=== PATIENT | male | born 1995 | race Caucasian/White ===

== ENCOUNTER 2025-01-13 13:51 | Outpatient (AMB) | payer OTHER, SELFPAY ==
--- NOTE | 2025-01-13 13:55 | A.OFFPC_ITS ---
Vital Signs 01/13/25 14:24 Height 6 ft Weight 161 lb BMI 21.8 BP 128/72 Blood Pressure Location Lt brachial Position Sitting Respiration 18 Pulse 74 Pulse Source Pulse Oximeter Temp 97.5 F Temp Source Temporal Artery Scan Pulse Oximetry (%) 97 Oxygen Delivery Method Room Air Intake Visit Reasons: QA ARCHITECT /// Requesting a PE Economic Historian Required: No Accompanied by: Self / Same As Patient Allergies cat dander (cats) Allergy (Mild, Verified 01/15/25 11:05) Itchy Eyes dog dander (dogs) Allergy (Mild, Verified 01/15/25 11:05) Itchy Eyes mold Allergy (Mild, Verified 01/15/25 11:05) Itchy Eyes Medication List - Last Reconciled 01/15/25 by ASAD Martinez No Known Home Meds Tobacco use date assessed: 01/13/25 Dental Screening Dental Screen Date: 01/13/25 Did you have a dental visit in the last 12 months?: Yes Did you have a dental problem in the last 6 months where you did not have access to dental care?: No Was dental information given to patient?: Patient has dentist HPI QA ARCHITECT /// Requesting a PE HPI Details Previous PCP: Juana Rashid Agawam Last visit: 6 years ago Last PE:About 8 years Specialist: Cardiology, Juana Sullivan OBGYN:n/a Past medical history: Afib Medications:Cardizem Family HX: Problem: The patient is a 29-year-old male presenting for an annual physical exam and follow-up on his atrial fibrillation. He has a history of both rapid and very slow heart rates and was diagnosed with atrial fibrillation after his Apple Watch detected an abnormal heart rate while he was sleeping. He notes his bradycardia is attributed to being in good physical shape, and his blood pressure remains normal even with a low heart rate. The patient has identified alcohol as a trigger for his A-fib episodes and has subsequently stopped drinking. He describes his alcohol use as a social activity and reports feeling better since quitting. He has a prescription for A-fib, which he takes as needed when his heart rate becomes very high, such as 150 beats per minute. The patient also reports a past incident of ear blockage on one side, which caused hearing loss. He is currently not experiencing ear pain or ringing in the ear. Note: He takes cardizem 30 mg as needed. He was discharged with 30 mg 4 times a day from the emergency room. But after being worked up by Cardiology this was decreased to once a day as needed. The patient reports taking salts intermittently increase his hydration. Reports that he stopped drinking alcohol and ever since he has not have anymore AFib episodes. [facility] Medical History (Updated 01/15/25 @ 12:17 by ASAD Martinez) Paroxysmal A-fib History of electrophysiologic study Social History Alcohol intake: never Patient Tobacco Use Status: Never used Tobacco e-Cigarette/Vaping Use: Never Used Current occupational status: employed Current occupation: Billboard Worker Cognitive needs: No Hearing needs: No Vision needs: No Questionnaire PHQ-9 Over the last 2 weeks, how often have you been bothered by any of the following problems? 1. Little interest or pleasure in doing things: not at all 2. Feeling down, depressed, or hopeless: not at all 3. Trouble falling or staying asleep, or sleeping too much: not at all 4. Feeling tired or having little energy: not at all 5. Poor appetite or overeating: not at all 6. Feeling bad about yourself - or that you are a failure or have let yourself or your family down: not at all 7. Trouble concentrating on things, such as reading the newspaper or watching television: not at all 8. Moving or speaking so slowly that other people could have noticed. Or the opposite - being so fidgety or restless that you have been moving around a lot more than usual: not at all 9. Thoughts that you would be better off or of hurting yourself in some way: not at all Total score: 0 Depression Screening Interpretation: Negative Depression Screening Done: Yes 32303 - PHQ-9 Billing: Yes Source: Developed by Drs. Jaret Samson, Natalie Mayfield, Nabil Tapia and colleagues, with an educational jacy from [employer]. Thrive Questionnaire Date Thrive assessed: 01/13/25 I am a: Patient What is your living situation today?: I have a steady place to live Within the past 12 months, did the food you bought not last and you didn't have the money to get more?: Never true Within the past 12 months, did you worry whether your food would run out before you got money to buy more?: Never true Do you have trouble paying for medicines?: No Do you have trouble getting transportation to medical appointments?: No Do you have trouble paying your heating and electricity bill?: No Do you have trouble taking care of your child, family member or friend?: No Do you have trouble with day-to-day activities such as bathing, preparing meals, shopping, managing finances, etc.?: No Are you currently unemployed and looking for a job?: No Are you interested in more education?: Yes Please select the resources that you would like help with: None Currently or been in a relationship where the following occur: No concerns reported THRIVE Score: 0 AUDIT C Alcohol Use Questionnaire (AUDIT-C) 1. How often do you have a drink containing alcohol?: Never Total Score: 0 CARLA-7 AMB Questionnaire CARLA-7 Date CARLA - 7 assessed: 01/13/25 Feeling nervous, anxious, or on edge: 0 = Not at all Not being able to stop or control worryin = Not at all Worrying too much about different things: 0 = Not at all Trouble relaxin = Not at all Being so restless that it is hard to sit still: 0 = Not at all Becoming easily annoyed or irritable: 0 = Not at all Feeling afraid as if something awful might happen: 0 = Not at all Total CARLA-7 score (0-4 normal; 5-9 mild; 10-14 moderate; 15-21 severe): 0 Source: Developed by Drs. Jaret Samson, Natalie Mayfield, Nabil Tapia and colleagues, with an educational jacy from [employer]. CARLA-7 Assessment Billing CARLA-7 Assessment Tool: CARLA-7 Assessment 52262 Review of Systems Const Denies headache(s) Eyes Denies loss of vision ENT Denies vertigo, Denies dizziness, Denies headache(s) and Denies sore throat Card Denies chest pain, Denies leg edema and Denies lightheadedness Resp Denies cough, Denies hemoptysis and Denies wheezing GI Denies abdominal pain, Denies melena, Denies constipation, Denies diarrhea and Denies vomiting Denies dysuria, Denies urinary frequency and Denies urinary urgency Musc Denies arthralgias, Denies joint swelling, Denies numbness and Denies tingling Neuro Denies Abnormal speech present, Denies behavioral changes, Denies vertigo, Denies dizziness, Denies headache(s), Denies loss of vision, Denies memory loss, Denies numbness and Denies tingling Psych Denies anxiety, Denies behavioral changes, Denies depression, Denies memory loss and Denies panic attacks Julian/Lymph Denies easy bleeding and Denies easy bruising Aller/Immun Denies wheezing Physical exam (Primary Care) Vital Signs: Last Vital Signs Temp 97.5 F 01/13/25 14:24 Pulse 74 01/13/25 14:24 Resp 18 01/13/25 14:24 BP 128/72 01/13/25 14:24 Pulse Ox 97 01/13/25 14:24 Oxygen Delivery Method Room Air 01/13/25 14:24 BMI result Body Mass Index 21.8 Tobacco/Smoking Status: Tobacco use Status Tobacco use date assessed 01/13/25 01/13/25 14:32 Patient Tobacco Use Status Never used Tobacco 01/13/25 14:32 e-Cigarette/Vaping Use Never Used 01/13/25 14:32 PHQ-9: PHQ-9 Score PHQ-9: Total score 0 01/13/25 14:43 Depression Screening Interpretation: Negative Thrive Assessment: Date of Thrive Assessment Date Thrive assessed 01/13/25 01/13/25 14:32 Currently or been in a relationship where the following occur: No concerns reported Const General: healthy appearing, no acute distress, alert and awake Nutritional Appearance: well nourished Orientation/consciousness: oriented to person, oriented to place and oriented to time [facility] Ears: Abnormal EAC present cerumen impaction bilateral General nose exam: Normal nasal mucous membranes and turbinates present Eyes Conjunctivae: conjunctivae normal Sclerae: sclerae normal Pupils: Equal, round and reactive pupils present Neck Neck: Yes no lymphadenopathy and Yes no JVD Thyroid: Thyroid normal Carotids: no bruits Resp Effort & Inspection: normal respiratory effort and not tachypneic Auscultation: no crackles, no rales, no rhonchi and no wheezes Cardio Rate: regular rate Rhythm: regular rhythm Heart sounds: no murmurs and normal S1 and S2 GI Palpation (GI): Soft to palpation, nontender, no hepatomegaly and no splenomegaly Auscultation: normal bowel sounds General: Yes no CVA tenderness Back/Spine/Pelvis Back: no CVA tenderness Skin General skin exam: no rashes or lesions noted and dry skin Neuro General: oriented to person, oriented to place and oriented to time Cranial nerves: Yes Equal, round and reactive pupils present Speech: No Abnormal speech present Gait exam (Neuro): Normal gait present Motor exam (neuro): no tremor noted Extrem Right upper extremity: full ROM Left upper extremity: full ROM Right lower extremity: full ROM; no edema Left lower extremity: full ROM; no edema Psych Mental Status: mental status grossly normal Speech and movement: Normal speech and movement present Affect: normal affect Attitude: cooperative Thought process: Normal thought process present Coding Level of Care Code New Pt Level 4 (75018) Diagnoses Paroxysmal A-fib I48.0 Impacted cerumen of both ears H61.23 Encounter to establish care Z76.89 Additional Codes PHQ-9 - 88003 - PHQ-9 Billing: Yes ([id number]) CARLA-7 Assessment Billing - CARLA-7 Assessment Tool: CARLA-7 Assessment 25478 ([id number]) Time Spent (min) 36 Assessment & Plan Assessment & Plan (1) Paroxysmal A-fib: Code(s): I48.0 - Paroxysmal atrial fibrillation Category: Medical Plan: The patient's atrial fibrillation appears to be paroxysmal and is strongly associated with alcohol consumption. He has been asymptomatic since ceasing alcohol intake. He will continue his current cardizem 30 mg on an as-needed basis for episodes of tachycardia, specifically if his heart rate exceeds 150 bpm while at rest. He is advised to continue abstaining from alcohol to prevent recurrence. (2) Impacted cerumen of both ears: Code(s): H61.23 - Impacted cerumen, bilateral Category: Medical Plan: The patient reports history of blockage, denies ear discomfort. He was advised not to insert objects into his ear canal. Reports that he has his own way of cleaning his ear with running warm water into the ears in the shower. He wants to try his method first and if this does not work then he will schedule an ear cleaning with the office. (3) Encounter to establish care: Code(s): Z76.89 - Persons encountering health services in other specified circumstances Category: Medical Plan: The patient is due for routine health screening. A general lab panel, including a fasting lipid panel, will be ordered. A follow-up visit is scheduled in 7 weeks to review the results. Orders: Orders 2 UA CC w/rflx Micro + Cult 01/13/25 Z00.00 - Encounter for general adult medical examination without abnormal findings TSH reflex Free T4 01/13/25 Z00. - Encounter for general adult medical examination without abnormal findings Vitamin D 25-OH Total 01/13/25 Z00.00 - Encounter for general adult medical examination without abnormal findings Lipid Panel 01/13/25 Z00.00 - Encounter for general adult medical examination without abnormal findings Complete Blood Count Auto Diff 01/13/25 Z00.00 - Encounter for general adult medical examination without abnormal findings Comprehensive [place]. Panel Fast 01/13/25 Z00.00 - Encounter for general adult medical examination without abnormal findings
[2025-01-13 14:24] VITALS: BP 128/72; PULSE 74; RESP 18; TEMP 36.4; O2SAT 97; BMI 21.8
--- OUTSIDE RECORDS SUMMARY | 2025-01-13 20:18 | XMS_ITS | Clinical Summary ---
Author Organization [facility] Address [address] [place] [address] Phone Care Team Providers Care Scudding Inspector Name Role Phone Physician, No Pcp Primary Care Provider Unavaila ble Allergies Active Allergy Reactions Criticality Noted Date Comments Dog Dander 07/14/2005 cats House Dust 07/14/2005 grass. Medications Hospital, Clinic, or Other Facility Administered Medication Ordered Dose Route Frequency Start Date End Date Status dilTIAZem (CARDIZEM) immediate release tablet 30 mgIndications:Atrial fibrillation with rapid ventricular response (CMS/HCC V24, CMS/HCC V28) 30 mg oral Every 6 hours PRN 10/07/2024 Active Active Problems Problem Noted Date Diagnosed Date Palpitations 08/16/2024 Atrial fibrillation with rap id ventricular response (CMS/HCC V24, CMS/HCC V28) 08/07/2024 Assessment & Plan (08/17/2024 8:23 AM EDT): Recent hospitalization at [facility] was able to capture episodes of atrial fibrillation with rapid ventricular response, with rates in the 140s-150s, as high as 200 bpm. 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 EKG done in the office today shows sinus bradycardia with a rate of 51 bpm. Patient has been advised he can take the diltiazem as needed for A-fib/tachycardia. I will discuss plan for EP study with Dr. Hoffman. No indication for anticoagulation given low [id number] score. Patient has been informed of modifiable risk factors that can contribute to prevalence of atrial fibrillation including uncontrolled blood pressure, obesity, sedentary lifestyle, smoking, excessive alcohol or caffeine consumption, excessive stress and untreated sleep apnea. Tachycardia 06/17/2024 Assessment & Plan (06/17/2024 9:01 AM EDT): I suspect those episodes of rapid heart rate were caused by some type of sustained arrhythmia. His EKG showed short MO interval and he could have accessory pathway. The frequency of the episode was every couple of months and Holter monitor may not able to catch those event. I will start with 2 days Holter monitor and if this is unrevealing, we will move onto 30-day monitor. His cardiac exam is benign. If improved he has sustained tachycardiac arrhythmia, we will schedule echocardiogram to make sure he has no structure disease. Orders: Transthoracic echocardiogram (TTE) complete with PRN contrast, bubble, strain, and 3D order panel; Future Myofascial pain syndrome of thoracic spine 12/14 Murmur, cardiac 08/20/2013 Overview (03/22/2024): Noted 2006. Cardiology 12/06 (Dr. Gayla Garcia). Normal EKG. Innocent murmur. No further eval needed. Not noted by Dr. Milton after 2009, not noted 08/13 Asthma 08/18/2013 Testicular atrophy 1996 Encounters Date Type Department Care Team Description 11/03/2024 Telephone [facility] - [address] [place] [address] Helen Deras NP from Last 3 Months Immunizations Immunization Administration Dates Next Due DTaP (Infanrix) 6wks to less than 7yo ,07/11/1998,06/26/1997,04/28,03/03/1997 [id number] (Pentacel) 2mo to less than 5yo 03/30/1998,06/26/1997,04/28/1997,03/03 H1N1 Inj Preservative Free 01/01/2009 HPV, Quadrivalent 09/13/2012,05/17/2012,03/15/19 13 Hepatitis B Pediatric (Enger ix B; Recombivax HB) to less than 20 yo 09/25/1997,01/30/1997,1996 IPV Inactivated polio (Ipol) 6wks and older 01/01/2001,04/28/1997,03/03/1997 Influenza trivalent, with pr eservative (Fluzone; Afluria) 6mo and older 2015,12/23/2012,11/20/2011,11/25,01/10/2010,11/16/2008,12/07/2007 ,12/10/2006,01/21/2006,01/03/2005 MMR, measles mumps and rubel la Live (Priorix; M-M-R II) 12mo and older 01/01/2001,03/30/1998 Meningococcal MCV4P 08/18/2013,02/07/2008 OPV 12/27/1997 Tdap Tetanus diptheria acell ular pertussis (Boostrix; Adacel) 7yo and older 02/07/2008 Varicella live (Varivax) 12m o and older 02/06/2009,12/27/1997 Surgical History Surgery Date Site/Laterality Comments OTHER SURGICAL HISTORY PROCEDURE: DENIES PREVIOUS SURGERY Medical History Medical History Date Comments Unspecified asthma(493.90) DX:Un specified asthma(493.90) Acute suppurative otitis med ia without spontaneous rupture of eardrum DX:Acute suppurative ot itis media without spontaneous rupture of eardrum Atrophy of testis DX:Atrophy of testis; COMMENT: left side. removal on 11/13/97. 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 Inguinal hernia without ment ion of obstruction or gangrene, unilateral or unspecified, (not specified as recurrent) DX:Inguinal hernia without m ention of obstruction or gangrene, unilateral or unspecified, (not specified as recurrent); COMMENT: left side repaired on 11/13/97 Hand fracture, right 12/12 DX:Hand fra cture, right; COMMENT: distal fifth metacarpal Left rib fracture DX:Left rib fr acture Dizziness Palpitation Family History Medical History Relation Name Comments Allergies Mother multiple enviro nmental allergies. Relation Name Status Comments Father Alive 1968 Mother Alive 1965 Social History Tobacco Use Types Packs/Day Years Used Date Smoking Tobacco: Never Smokeless Tobacco: Never Alcohol Use Standard Drinks/Week Comments Yes 0 (1 standard drink = 0.6 oz pur e alcohol) Interpersonal Safety Answer Date Record ed Physical Abuse Unrecognized value 08/07/2024 Verbal Abuse Unrecognized value 08/07/2024 Sex and Gender Information Value Date Recorded Sex Assigned at Not on file Legal Sex Male 9:44 PM EST Gender Identity Not on file Sexual Orientation Straight 08/07/2024 2: 22 PM EDT Obstetrics History Last Filed Vital Signs Vital Sign Reading Time Taken Comments Blood Pressure 140/85 10/07/2024 5:30 PM EDT Pulse 54 10/07/2024 5:30 PM EDT Temperature 36.9 C (98.5 F) 10/07/2024 12:10 PM EDT Respiratory Rate 14 10/07/2024 5:30 PM EDT Oxygen Saturation 100% 10/07/2024 5:30 PM EDT Inhaled Oxygen Concentration - - Weight 72.6 kg (160 lb) 10/07/2024 12:05 PM EDT Height 182.9 cm (6') 10/07/2024 12:05 PM EDT Body Mass Index 21.7 10/07/2024 12:05 PM EDT Plan of Treatment Upcoming Encounters Date Type Department Care Team (Late st Contact Info) Description 01/18/2025 2:40 PM EST Office Visit [facility] [address] [place] [address] Helen Deras NP [address] [place] [address] [place] [address] Health Maintenance Due Date Last Done Comments Pneumococcal Vaccine: Pediatrics (0 to 5 Years) and At-Risk Patients (6 to 49 Years) (1 of 2 - PCV) 12/26/2015 DTaP,Tdap,and Td Vaccines (7 - Td or Tdap) 02/06/2018 02/07/2008, 01/01/2001, 07/11/1998, Additional history exists HIV Screening 02/01/2022 Hepatitis C Screening 02/01/2022 Social Influencers of Health Screening 02/01/2022 Depression Screening 03/02/2024 COVID-19 Vaccine ( season) 2024 Influenza Vaccine (#1) 2024 6, 12/23/2012, 11/20/2011, Additional history exists RSV Immunization Adult Patients (1 - 1-dose 75+ series) 12/26/2071 Hepatitis B Vaccines Completed 09/25/1997, 01/30/1997, 1996 HIB Vaccines Completed 03/30/1998, 03/03, 06/26/1997, Additional history exists IPV Vaccines Completed 01/01/2001, 03/03, 12/27/1997, Additional history exists MMR Vaccines Completed 01/01/2001, 03/30/1998 Varicella Vaccines Completed 02/06/2009, 12/27/1997 HPV Vaccines Completed 09/13/2012, 04/30, 03/15/2012 Meningococcal ACWY Vaccine Completed 08/18/2013, Hepatitis A Vaccines Aged Out No long er eligible based on patient's age to complete this topic Meningococcal B Vaccine Aged Out No l onger eligible based on patient's age to complete this topic RSV Immunization Patients Under 20 months Aged Out No longer eligible based on patient's age to complete this topic Medical Devices Implanted Type Area Collection Systems Technician Device Identifier Shelf Expiration Date Model / Serial / Lot Device Clsur Vascade Mvp 6-12f Fem Art - [id number] - [id number] Implanted:Qty: 4 on 10/07/2024 by Shailesh Hoffman MD at [facility] Vascular Closure Devices N/A: Groin [employer]- [employer] MED ITEMS 04/27/2026 [id number] / [id number] / Insurance [facility] Advance Directives * Full Code - Default (Latest Code Status on File) Date Activated Date Inactivated Comments 08/07/2024 10:18 AM 08/09/2024 1:37 PM This is orde r is used when code status has not been discussed with the patient, or code status is otherwise unknown/unconfirmed To update the patient's code status, place a code status order. Do not modify or discontinue any currently active code status orders. Healthcare Agents on File Name Relationship Healthcare Agent [facility] Communication Madonna Gomez Sr. Father Health Care Agent Brandi Gomez Mother [facility] Health Care Agent Care Teams Scudding Inspector Relationship Specialty Start Date End Date Physician, No Pcp PCP - General 06/16/24
== END 2025-01-13 15:06 | disposition home or self-care (01) ==
LOC: HO.HMCH 13:51
DX: I48.0 Paroxysmal atrial fibrillation (principal); H61.23 Impacted cerumen, bilateral; Z76.89 Persons encountering health services in other specified circumstances

== ENCOUNTER → 2025-01-13 13:51 | Outpatient (BNVA) | payer OTHER, SELFPAY | DX: Z00.00 Encounter for general adult medical examination without abnormal findings (principal); I48.0 Paroxysmal atrial fibrillation; H61.23 Impacted cerumen, bilateral; Z76.89 Persons encountering health services in other specified circumstances; Z79.899 Other long term (current) drug therapy | CPT/HCPCS: 96127 ==